=== PATIENT | female | born 1965 | race Caucasian/White ===

== ENCOUNTER 2019-03-01 09:42 | Day surgery (SDC) | payer OTHER ==
[~2019-03-01] VITALS: Ht 165.1 cm; Wt 72.7 kg
[~2019-03-01 09:42] MED LIST: Amoxicillin875 MG PO; BISA5EC PO; CALCA500CH PO; CYCL10 PO; Flomax0.4 MG PO; Flonase 0.05% N16 GM; HYDCHL25 PO; Hydrochlorothia25 MG PO; KETO10 PO; LIOT25 PO; LISI20 PO; MODA200 PO; Miralax17 GM PO; Nitrostat0.4 MG SL; OMEP40CA12 PO; PROM25 PO; PSEU120ER PO; Percocet 5-3251 EACH PO; Questran4 GM GT; Seroquel Xr50 MG PO; URSO300 PO
== END 2019-03-01 11:37 | disposition home or self-care (01) ==
LOC: ORSCSDS 09:42
PROVIDERS: Internal Medicine Gastroenterology
PROC: 0DB58ZX Excision of Esophagus, Via Natural or Artificial Opening Endoscopic, Diagnostic (ICD-10-PCS; principal; 2019-03-01 11:15)
DX: K22.70 Barrett's esophagus without dysplasia (principal); K74.60 Unspecified cirrhosis of liver; K21.0 Gastro-esophageal reflux disease with esophagitis; K44.9 Diaphragmatic hernia without obstruction or gangrene; I10 Essential (primary) hypertension; D64.9 Anemia, unspecified; E78.5 Hyperlipidemia, unspecified; F31.9 Bipolar disorder, unspecified; Z87.891 Personal history of nicotine dependence; Z79.899 Other long term (current) drug therapy
CPT/HCPCS: 88305; J2704; J7120

== ENCOUNTER → 2021-06-25 | Outpatient (CLI) | payer OTHER | END | disposition home or self-care (01) | LOC: LAB SHORT 07:19 → LAB 07:19 | DX: R10.13 Epigastric pain (principal) | CPT/HCPCS: 87338 ==

== ENCOUNTER 2022-07-27 06:49 | Day surgery (SDC) | payer OTHER ==
[~2022-07-27] VITALS: Ht 165.1 cm; Wt 80.0 kg
[2022-07-27] MEDS ORDERED: OMEP20ER (07:08)
[2022-07-27] MEDS ORDERED: EUTHYROX50 MCG (07:08)
[2022-07-27] MEDS ORDERED: TOPI100 (07:08)
== END 2022-07-27 08:30 | disposition home or self-care (01) ==
LOC: ORSCSDS 06:49
PROVIDERS: Student in an Organized Health Care Education/Training Program
PROC: 0DB48ZX Excision of Esophagogastric Junction, Via Natural or Artificial Opening Endoscopic, Diagnostic (ICD-10-PCS; principal; 2022-07-27 08:00)
DX: K22.70 Barrett's esophagus without dysplasia (principal); K74.60 Unspecified cirrhosis of liver; K20.90 Esophagitis, unspecified without bleeding; I10 Essential (primary) hypertension; E78.5 Hyperlipidemia, unspecified; E03.9 Hypothyroidism, unspecified; E55.9 Vitamin D deficiency, unspecified; Z87.891 Personal history of nicotine dependence; Z79.899 Other long term (current) drug therapy
CPT/HCPCS: 88305; J2704; J7120